=== PATIENT | male | born 1980 | race Caucasian/White ===

== ENCOUNTER 2017-05-07 20:11 | Emergency (ER) | payer SELFPAY ==
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
[2017-05-07] MEDS ORDERED: HALOPERIDOL LACTATE INJ 5 MG/1 ML VIAL IM ONE (20:28)
[2017-05-07] MEDS ORDERED: MIDAZOLAM 2 MG/2 ML INJ IM ONE (20:29)
[2017-05-07] MEDS ORDERED: DIPHENHYDRAMINE HCL 50 MG/ML VIAL IM ONE (20:29)
[2017-05-07 21:44] LABS: ABSOLUTE BASOPHILS # (AUTO) 0.1 10^3/uL (0.0-0.2); ABSOLUTE EOSINOPHILS # (AUTO) 0.1 10^3/uL (0.0-0.6); ABSOLUTE LYMPHOCYTES (AUTO) 1.2 10^3/uL (0.5-4.7); ABSOLUTE MONOCYTES (AUTO) 0.5 10^3/uL (0.1-1.4); ABSOLUTE NEUT (AUTO) 4.8 10^3/uL (1.7-8.2); BASOPHILS % (AUTO) 1.1 % (0-2); EOSINOPHILS % (AUTO) 0.8 % (0-6); HEMATOCRIT 33.8 % (37.9-51.0); HEMOGLOBIN 11.3 g/dL (13.5-17.0); HGB HCT DIFFERENCE 0.1; LYMPHOCYTES % (AUTO) 18.4 % (13-45); MEAN CORPUSCULAR HEMOGLOBIN 24.8 pg (27.0-33.4); MEAN CORPUSCULAR HGB CONC 33.5 g/dL (32.0-36.0); MEAN CORPUSCULAR VOLUME 74 fl (80-97); MONOCYTES % (AUTO) 7.2 % (3-13); RED BLOOD COUNT 4.56 10^6/uL (4.35-5.55); RED CELL DISTRIBUTION WIDTH 16.2 % (11.5-14.0); SEGMENTED NEUTROPHILS % (AUTO) 72.5 % (42-78); WHITE BLOOD COUNT 6.6 10^3/uL (4.0-10.5)
--- NOTE | 2017-05-07 21:59 | RADIOLOGY REPORT (SQ) ---
EXAM DESCRIPTION: CT HEAD WITHOUT COMPLETED DATE/TIME: 05/07/2017 9:48 pm REASON FOR STUDY: recent TBI- altered mental status COMPARISON: None. TECHNIQUE: Axial images acquired through the brain without intravenous contrast. Images reviewed wi th bone, brain and subdural windows. Images stored on PACS. All CT scanners at this facility use dose modulation, iterative reconstruction, and/or weight based d osing when appropriate to reduce radiation dose to as low as reasonably achievable (ALARA). [facility]: Dose Right [facility]: CareDose [facility]: Dose Right [facility]: Teradose 4D [facility]: [employer]Path RADIATION DOSE: 128 mGy. LIMITATIONS: Motion artifact, patient scanned twice FINDINGS: VENTRICLES: Normal size and contour. CEREBRUM: Post right temporal craniotomy with encephalomalacia in the right temporal lobe. No CT evid ence of acute ischemic change, acute intracranial hemorrhage, mass effect, or midline shift. CEREBELLUM: No masses. No hemorrhage. No alteration of density. No evidence for acute infarction. EXTRAAXIAL SPACES: No fluid collections. No masses. ORBITS AND GLOBE: No intra- or extraconal masses. Normal contour of globe without masses. CALVARIUM: No acute fracture. Old right craniotomy PARANASAL SINUSES: Right maxillary sinusitis, with circumferential mucous membrane thickening and dep endently layering fluid SOFT TISSUES: No mass or hematoma. OTHER: No other significant finding. IMPRESSION: Right maxillary sinusitis Right temporal craniotomy with focal encephalomalacia in the temporal lobe. No acute intracranial changes EVIDENCE OF ACUTE STROKE: NO. COMMENT: Quality ID # [id number]: Final reports with documentation of one or more dose reduction techniques (e.g., Automated exposure control, adjustment of the mA and/or kV according to patient size, use of iterative reconstruction technique) TECHNICAL DOCUMENTATION: JOB ID: [id number] [employer]- All Rights Reserved
[2017-05-07 22:25] LABS: ALANINE AMINOTRANSFERASE 53 U/L (21-72); ALBUMIN 4.4 g/dL (3.5-5.0); ALKALINE PHOSPHATASE 141 U/L (38-126); ANION GAP 14 (5-19); ASPARTATE AMINO TRANSFERASE 39 U/L (17-59); BILIRUBIN,DIRECT 0.6 mg/dL (0.0-0.4); BILIRUBIN,TOTAL 1.8 mg/dL (0.2-1.3); BLOOD UREA NITROGEN 14 mg/dL (7-20); CALCIUM 9.6 mg/dL (8.4-10.2); CARBON DIOXIDE 27 mmol/L (22-30); CHLORIDE 104 mmol/L (98-107); GLUCOSE 107 mg/dL (75-110); POTASSIUM 3.6 mmol/L (3.6-5.0); SODIUM 144.7 mmol/L (137-145); TOTAL PROTEIN 8.1 g/dL (6.3-8.2)
[2017-05-07 22:28] LABS: ALCOHOL < 10 mg/dL (NONE DETECTED)
--- NOTE | 2017-05-07 23:52 | RADIOLOGY REPORT (SQ) ---
EXAM DESCRIPTION: CHEST SINGLE VIEW COMPLETED DATE/TIME: 05/07/2017 11:32 pm REASON FOR STUDY: agitation COMPARISON: None. EXAM PARAMETERS: NUMBER OF VIEWS: One view. TECHNIQUE: Single frontal radiographic view of the chest acquired. RADIATION DOSE: NA LIMITATIONS: None. FINDINGS: LUNGS AND PLEURA: No opacities, masses or pneumothorax. No pleural effusion. MEDIASTINUM AND HILAR STRUCTURES: No masses. Contour normal. HEART AND VASCULAR STRUCTURES: Heart normal in size. Normal vasculature. BONES: Old left clavicle and scapular fractures. Old left lateral rib fractures HARDWARE: None in the chest. OTHER: No other significant finding. IMPRESSION: No acute changes TECHNICAL DOCUMENTATION: JOB ID: [id number] [employer]- All Rights Reserved
[2017-05-08 01:25] LABS: APPEARANCE,URINE SLIGHTLY-CLOUDY; BILIRUBIN,URINE NEGATIVE (NEGATIVE); GLUCOSE, URINE NEGATIVE (NEGATIVE); KETONES,URINE TRACE mg/dL (NEGATIVE); LEUKOCYTE ESTERASE,URINE NEGATIVE (NEGATIVE); NITRITE,URINE NEGATIVE (NEGATIVE); PROTEIN,URINE NEGATIVE (NEGATIVE); URINE SPECIFIC GRAVITY 1.027; UROBILINOGEN,URINE NEGATIVE mg/dL (<2.0)
[2017-05-08 01:34] LABS: BACTERIA,URINE TRACE /HPF
[2017-05-08] MEDS ORDERED: MIDAZOLAM 2 MG/2 ML INJ IM ONE (01:38)
[2017-05-08] MEDS ORDERED: HALOPERIDOL LACTATE INJ 5 MG/1 ML VIAL IM ONE (01:39)
[2017-05-08] MEDS ORDERED: DIPHENHYDRAMINE HCL 50 MG/ML VIAL IM ONE (01:39)
[2017-05-08 01:42] LABS: URINE BARBITURATES SCREEN NEGATIVE; URINE METHADONE SCREEN NEGATIVE; URINE OPIATES LOW NEGATIVE; URINE PHENCYCLIDINE SCREEN NEGATIVE
[2017-05-08 04:09] LABS: THYROID STIMULATING HORMONE 2.24 uIU/mL (0.47-4.68)
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
[2017-05-08] MEDS: LEVETIRACETAM 500 MG TABLET PO SCH ×2 (10:23→18:01)
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
[2017-05-09] MEDS ORDERED: HALOPERIDOL LACTATE INJ 5 MG/1 ML VIAL IM ONE (02:52)
--- NOTE | 2017-05-09 09:16 | EKG REPORT ---
SEVERITY:- NORMAL ECG - SINUS RHYTHM : Confirmed by: Golden lAarcon MD 09-May-2017 09:15:52
[2017-05-09] MEDS: LEVETIRACETAM 500 MG TABLET PO SCH (09:53)
--- NOTE | 2017-05-09 09:58 | ER Document Report ---
Doctor's Note Notes: 05/09/17 09:57 Rounds: Chart reviewed and patient interviewed. Patient says he is feeling much better. Seems to be exhibiting rational thoughts at this time. Giuliano says that he is back to his normal baseline. Giuliano has arrange for an appointment to see their neurologist tomorrow at 1:00. Vital signs are all normal. Patient is medically stable for transfer or discharge. Mental health feels patient can be discharged to keep his appointment for follow-up tomorrow. A prescription for Keppra 500 mg twice a day for 5 days will be provided to the patient. He is advised to take that bottle with him to see his doctor tomorrow so that he will know what we are giving him. Eloina Zambrano MD
[2017-05-09 10:12] VITALS: BP 150/94
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
== END 2017-05-09 10:13 | disposition home or self-care (01) ==
LOC: ER 20:11
DX: F29 Unspecified psychosis not due to a substance or known physiological condition (principal); S06.309D Unspecified focal traumatic brain injury with loss of consciousness of unspecified duration, subsequent encounter; V86.99XA Unspecified occupant of other special all-terrain or other off-road motor vehicle injured in nontraffic accident, initial encounter; Z98.890 Other specified postprocedural states
CPT/HCPCS: 93005; 99285; 96372; 36415; 84439; 80307 ×4; 84443; 85025; 80053; 81001; 71010; 70450; 93010; J2250 ×2; J1200 ×2; J1630 ×3

== ENCOUNTER 2017-06-22 01:36 | Emergency (ER) | payer SELFPAY ==
[2017-06-22 05:52] LABS: APPEARANCE,URINE CLEAR; BILIRUBIN,URINE NEGATIVE (NEGATIVE); COLOR,URINE YELLOW; GLUCOSE, URINE NEGATIVE (NEGATIVE); KETONES,URINE NEGATIVE (NEGATIVE); LEUKOCYTE ESTERASE,URINE NEGATIVE (NEGATIVE); NITRITE,URINE NEGATIVE (NEGATIVE); PROTEIN,URINE NEGATIVE (NEGATIVE); URINE SPECIFIC GRAVITY 1.019; UROBILINOGEN,URINE NEGATIVE mg/dL (<2.0)
[2017-06-22] MEDS ORDERED: MECLIZINE HCL 25 MG TABLET PO ONE (06:06)
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
--- NOTE | 2017-06-22 07:18 | RADIOLOGY REPORT (SQ) ---
EXAM DESCRIPTION: CT HEAD WITHOUT CLINICAL HISTORY: 36 years Male, headache, dizziness, post-craniotomy COMPARISON: 05/07/2017. TECHNIQUE: No contrast. This exam was performed according to our departmental dose-optimization program, which includes automated exposure control, adjustment of the mA and/or kV according to patient size and/or use of iterative reconstruction technique. FINDINGS: Moderate resection/encephalomalacia of the right temporal lobe with associated right temporal craniotomy site, two right anterior parietal cranial kobe holes, moderate mucosal thickening of the left frontal sinus not present on prior CT from May 07, 2017, interval clearing of the right maxillary sinus, no hemorrhage, no mass, no mass effect, no midline shift. Extra-axial structures appear otherwise grossly intact. IMPRESSION: No acute findings.
[2017-06-22 07:34] VITALS: BP 147/97
== END 2017-06-22 07:32 | disposition home or self-care (01) ==
LOC: ER 01:36
DX: H81.90 Unspecified disorder of vestibular function, unspecified ear (principal); Z87.820 Personal history of traumatic brain injury; Z98.890 Other specified postprocedural states; F17.200 Nicotine dependence, unspecified, uncomplicated
CPT/HCPCS: 70450; 81001; 99284